=== PATIENT | female | born 1965 | race Caucasian/White ===

== ENCOUNTER 2017-12-08 08:22 | Emergency (ER) | payer BC ==
[2017-12-08] MEDS: BUPIVACAINE 0.25% (MPF) 10 ML 10 ML VIAL INJ (10:30)
[2017-12-08] MEDS: BUPIVACAINE 0.25% (MPF) 30 ML INJ INJ (11:48)
== END 2017-12-08 12:53 | disposition home or self-care (01) ==
LOC: FTE 08:22
DX: M54.5 Low back pain (principal)
CPT/HCPCS: 72100; 96374; 99284-25

== ENCOUNTER 2018-01-10 11:43 | Day surgery (SDC) | payer BC ==
[2018-01-10] MEDS ORDERED: MIDAZOLAM 1 MG/ML 2 ML INJ ×2 (17:29)
[2018-01-10] MEDS ORDERED: FENTAnyl 50 MCG/ML VIAL (17:29)
== END 2018-01-10 15:47 | disposition home or self-care (01) ==
LOC: GIL 11:43
DX: K29.70 Gastritis, unspecified, without bleeding (principal); K21.9 Gastro-esophageal reflux disease without esophagitis; K44.9 Diaphragmatic hernia without obstruction or gangrene; K64.8 Other hemorrhoids; Z80.0 Family history of malignant neoplasm of digestive organs
CPT/HCPCS: 43239; 87081